=== PATIENT | male | born 1960 | race Caucasian/White ===

== ENCOUNTER → 2019-05-18 | Outpatient (CLI) | payer BC ==
--- NOTE | 2019-05-18 19:52 | CONS ---
CONSULTATION REASON FOR THE CONSULTATION: Sleep apnea. 58-year-old male patient was asked to come in for sleep apnea evaluation. His has noted that he is snoring and quitting breathing on multiple occasions at night. He himself does not feel much of daytime tiredness and sleepiness. He falls asleep easily in the evening while watching TV or other TV shows. Never the less, he is able to function well during the day. He goes to bed around 9 p.m., wakes up 5:00 am in the morning. Dale score is at 8. Weight gain has been present over the past 5 years in the order of 20-25 pounds. He has hypertension as comorbid conditions. No sleep paralysis. No hallucinations. No cataplexy. No nightmare. No restlessness in the lower extremities. PAST MEDICAL HISTORY: Hypertension. SURGICAL HISTORY: Negative. DRUG ALLERGIES: None. OUTPATIENT MEDICATION: Include Accupril 20 mg p.o. daily, Prilosec 20 mg p.o. daily. SOCIAL HISTORY: Nonsmoker. No alcohol. No history of IV drugs. FAMILY HISTORY: Negative for sleep apnea. REVIEW OF SYSTEMS: Fourteen-point review of system was done and positive findings are mentioned above in the history of present illness. PHYSICAL EXAMINATION: BP is 126/79, pulse 74, respirations 16, temperature 98.1. Saturation 97% on room air. Dale score is 8. Neck size is 17 and a quarter of an inch, body weight 220. Height is 5 feet 9 inches. GENERAL APPEARANCE: Calm, comfortable. Head is atraumatic, normocephalic. NECK: Supple. There is no JVD. No goiter or neck masses. Mallampati class IV. LUNGS: Clear to auscultation. HEART: Sounds are regular rate and rhythm. Normal S1, S2. No S3, S4. No murmurs. ABDOMEN: Soft, nontender. No organomegaly. EXTREMITIES: No edema. No cyanosis or clubbing. NEUROLOGIC: He is awake and alert. There are no focal neurological deficits. PSYCHIATRIC: Negative for anxiety or depression. SKIN is negative for any wounds or ulceration. IMPRESSION: 1. Loud snoring with questionable apneas consistent with obstructive sleep apnea. 2. Mild hypersomnia Dale score of 8. 3. Obesity. 4. Hypertension. 5. Acid reflux. PLAN: 1. Proceed with a screening polysomnogram. 2. Encourage weight loss. 3. We will decide if treatment is needed based on the results of the sleep study. 4. We will continue to follow. MMMARGRETL / IJN: [id number] /
== END | disposition home or self-care (01) ==
LOC: SLEEP 16:00
PROVIDERS: ATTEND Internal Medicine Critical Care Medicine
DX: Z53.9 Procedure and treatment not carried out, unspecified reason (principal)
CPT/HCPCS: 99211